=== PATIENT | male | born 1990 | race Caucasian/White ===

== ENCOUNTER → 2019-07-10 | Outpatient (REF) | payer OTHER ==
[~2019-07-10] MED LIST: ASPI325T OR; PERC5TAB8 OR
[2019-07-10 12:26] LABS: INFLUENZA A AMPLIFICATION NEGATIVE (NEGATIVE); INFLUENZA B AMPLIFICATION NEGATIVE (NEGATIVE)
== END ==
LOC: M LAB REF 11:16
PROVIDERS: ATTEND Physician Assistant
DX: J11.1 Influenza due to unidentified influenza virus with other respiratory manifestations (principal)

== ENCOUNTER 2025-04-01 11:22 | Emergency (ER) | payer OTHER, SELFPAY ==
[~2025-04-01] VITALS: Ht 182.9 cm; Wt 156.6 kg
[2025-04-01] MEDS ORDERED: CEPH500C (11:30)
[2025-04-01] MEDS ORDERED: IBUP-1022 PO (11:30)
[2025-04-01 13:05] LABS: BASO # 0.1 10^3/uL (0.0-0.2); BASO % 0.4 % (0.0-1.0); EOS # 0.6 10^3/uL (0.0-0.5); EOS % 4.8 % (0.0-3.0); LYMPH # 3.3 10^3/uL (1.5-5.0); LYMPH % 27.4 % (24.0-44.0); MONO # 1.0 10^3/uL (0.0-0.8); MONO % 8.2 % (2.0-8.0); NEUTROPHILS # 7.1 10^3/uL (1.5-8.5); NEUTROPHILS % 58.9 % (36.0-66.0); PLATELET COUNT, AUTOMATED 332 10^3/uL (150-450)
[2025-04-01] MEDS ORDERED: DALBAVANCIN 1,500 MG in D5W 250 ML IV ONE (13:10)
[2025-04-01 13:13] LABS: ERYTHROCYTE SEDIMENTATION RATE 80 mm/hr (0-15)
[2025-04-01 13:35] LABS: CALCIUM LEVEL 9.0 MG/DL (8.5-10.1); CARBON DIOXIDE LEVEL 26 MMOL/L (20-31); CHLORIDE LEVEL 103 MMOL/L (98-107); CREATININE FOR GFR 0.95 MG/DL (0.70-1.30); GLOMERULAR FILTRATION RATE > 90.0 (>60); POTASSIUM SERUM 3.9 MMOL/L (3.5-5.1); SODIUM LEVEL 141 MMOL/L (136-145)
[2025-04-01 13:48] LABS: C REACTIVE PROTEIN QUANTITATIV 12.49 MG/DL (<1.0)
[2025-04-01] MEDS: KETOROLAC 60 MG/2 ML VIAL IM ONE (16:15)
[2025-04-01] MEDS: DALBAVANCIN 1,500 MG in D5W 250 ML IV ONE (20:27)
[2025-04-01 21:38] VITALS: BP 158/102; TEMP 97.5; O2SAT 96
== END 2025-04-01 21:40 | disposition home or self-care (01) ==
LOC: M ED 11:22
DX: L03.115 Cellulitis of right lower limb (principal); F10.10 Alcohol abuse, uncomplicated; Z88.0 Allergy status to penicillin; Z79.1 Long term (current) use of non-steroidal anti-inflammatories (NSAID); Z79.2 Long term (current) use of antibiotics
CPT/HCPCS: 80048; 83605; 84145; 85025; 85652; 86140; 87040; 93971; 96365; 99285; J0875; J1885